=== PATIENT | female | born 1990 | race Caucasian/White ===

== ENCOUNTER 2024-12-24 07:28 | Emergency (ER) | payer SELFPAY ==
[~2024-12-24] VITALS: Ht 167.6 cm; Wt 55.0 kg
[2024-12-24 07:31] VITALS: TEMP 37; O2SAT 98
[2024-12-24 08:29] LABS: CLARITY URINE CLEAR (CLEAR); COLOR URINE ORANGE (YELLOW); GLUCOSE URINE NEGATIVE (NEGATIVE); KETONES URINE 3+ (NEGATIVE); LEUKOCYTE ESTERASE URINE TRACE (NEGATIVE); NITRITE URINE POSITIVE (NEGATIVE); OCCULT BLOOD URINE NEGATIVE (NEGATIVE); PH URINE 5.0 (4.5-8.0); PROTEIN URINE NEGATIVE (NEGATIVE); SPECIFIC GRAVITY URINE 1.011 (1.005-1.030); UROBILINOGEN URINE 1.0 E.U./dL (0.2-1.0)
[2024-12-24 08:59] LABS: BACTERIA URINE 1+; RBC URINE 0-2 /hpf (0-2); SQUAMOUS EPITHELIAL CELL URINE 1+ /lpf (RARE/1+); YEAST URINE NONE SEEN
[2024-12-24] MEDS: ACETAMINOPHEN 325MG TABLET PO ONE (09:06)
[2024-12-24] MEDS: CEPHALEXIN 250MG CAPSULE PO ONE (09:07)
[2024-12-24 09:33] LABS: BASOPHILS % 0.9 % (0.0-2.0); EOSINOPHILS % 0.1 % (0.0-5.0); HEMATOCRIT. 34.0 % (36.0-48.0); HEMOGLOBIN. 11.4 g/dL (12.0-16.0); LYMPHOCYTES % 17.4 % (20.0-50.0); MEAN PLATELET VOLUME 7.8 fl (7.4-10.4); MONOCYTES % 5.0 % (2.0-8.0); NEUTROPHILS % 76.6 % (40.0-76.0); PLATELET 413 x1000/uL (130-400); RED BLOOD CELL COUNT 4.14 mill/uL (4.2-5.4); RED CELL DISTRIBUTION WIDTH 15.0 % (11.6-14.6)
[2024-12-24 09:44] LABS: CREATININE 0.6 mg/dL (0.6-1.0)
[2024-12-24 09:45] LABS: UREA NITROGEN BLOOD < 5 mg/dL (9-23)
[2024-12-24] MEDS ORDERED: CEPH500C2 MT (09:50)
[2024-12-24] MEDS ORDERED: PYR200 MT (09:50)
[2024-12-24 10:05] VITALS: BP 105/60; PULSE 89; RESP 14; O2SAT 100
== END 2024-12-24 10:21 | disposition home or self-care (01) ==
LOC: ER 08:51
DX: N30.00 Acute cystitis without hematuria (principal); R55 Syncope and collapse
CPT/HCPCS: 36415; 80048; 81003; 81025; 85025; 93005; 99284